=== PATIENT | female | born 1975 | race Caucasian/White ===

== ENCOUNTER 2017-07-19 09:02 | Day surgery (SDC) | payer OTHER ==
[~2017-07-19] VITALS: Ht 157.5 cm; Wt 85.5 kg
[~2017-07-19 09:02] MED LIST: ACETAMINOPHEN/CODEINE 300-30 MG TABLET PO PRN; CINA30 PO; GLIP5 PO; LISI-660 PO; METF500T4 PO; RINGERS SOLUTION,LACTATED 500 ML IV ONE; SIMV-261 PO
[2017-07-19] MEDS ORDERED: MIDAZOLAM HCL 2 MG/2 ML VIAL IVP ONE (09:03)
[2017-07-19] MEDS ORDERED: FentaNYL CITRATE-PF 100 MCG/2 ML VIAL IVP ONE (09:03)
[2017-07-19] MEDS ORDERED: RINGERS SOLUTION,LACTATED 500 ML IV ONE (09:10)
[2017-07-19] MEDS ORDERED: TETRACAINE HCL/PF 0.5% 4 ML OPHTHALMIC SOLUTION ONE (09:11)
[2017-07-19] MEDS: TETRACAINE HCL/PF 0.5% 4 ML OPHTHALMIC SOLUTION OS SCH ×2 (09:53→10:00)
[2017-07-19 10:10] LABS: GLUCOSE COMMENT 1 Doctor Notified; GLUCOSE,POINT OF CARE 259 MG/DL (70-110)
[2017-07-19] MEDS ORDERED: ACETAMINOPHEN 500 MG TABLET ONE (12:32)
[2017-07-19] MEDS ORDERED: ACETAMINOPHEN 1000 MG/ISO-OSM 100 ML IV ONE ×2 (12:40→12:45)
[2017-07-19] MEDS ORDERED: MitoMYcin 0.2 MG/VIAL KIT FOR OPHTHALMIC USE OS ONE (13:30)
== END 2017-07-19 13:00 | disposition home or self-care (01) ==
LOC: SURGERY 09:02
PROVIDERS: ATTEND Ophthalmology
DX: E11.39 Type 2 diabetes mellitus with other diabetic ophthalmic complication (principal); H11.062 Recurrent pterygium of left eye; I10 Essential (primary) hypertension; E66.01 Morbid (severe) obesity due to excess calories; Z88.0 Allergy status to penicillin; Z72.89 Other problems related to lifestyle; Z79.4 Long term (current) use of insulin; Z98.890 Other specified postprocedural states; Z95.2 Presence of prosthetic heart valve
CPT/HCPCS: 65426; 82962; 84703; 88304; 93005; C1768; J0131; J2250; J3010; J7120